=== PATIENT | female | born 1950 | race American Indian/Alaskan Native ===

== ENCOUNTER 2017-02-02 19:40 | Emergency (ER) | payer BC ==
[2017-02-02 19:45] VITALS: BP 120/70; PULSE 90; O2SAT 100
--- NOTE | 2017-02-02 20:09 | C.PDOC ---
History Of Present Illness 66 y/o F c PMHx thyroid disease on Synthroid BIBEMS with no complaint. Patient states that she receives a monthly check from the [employer], but she has not received it for the last 3 months. She accused her son and of stealing the money and at home today, was in an argument about it. The family called 911 due to this aggressive behavior. Police were on site, called for an ambulance to bring the patient to the ED for medical clearance. No family accompanied the patient. The patient denies any homicidal/suicidal ideations or hallucinations. Time Seen by Provider: 02/02/17 19:59 Chief Complaint (Nursing): Psychiatric Evaluation Past Medical History Vital Signs: Last Vital Signs Temp 97.9 F 02/02/17 19:42 Pulse 90 02/02/17 19:42 Resp 16 02/02/17 19:42 BP 120/70 02/02/17 19:42 Pulse Ox 100 02/02/17 20:08 - Medical History PMH: Dementia, Hypothyroidism Family History: States: Unknown Family Hx - Social History Hx Alcohol Use: No Hx Substance Use: No - Immunization History Hx Tetanus Toxoid Vaccination: No Hx Influenza Vaccination: No Hx Pneumococcal Vaccination: No Review Of Systems Except As Marked, All Systems Reviewed And Found Negative. Constitutional: Negative for: Fever Cardiovascular: Negative for: Chest Pain Physical Exam - Physical Exam Appears: No Acute Distress Skin: Normal Color Head: Atraumatic, Normacephalic Eye(s): bilateral: PERRL Oral Mucosa: Moist Neck: Supple Cardiovascular: Rhythm Regular Respiratory: Normal Breath Sounds Gastrointestinal/Abdominal: Soft, No Tenderness Back: No CVA Tenderness Extremity: No Tenderness, No Swelling Pulses: Left Radial: Normal, Right Radial: Normal Neurological/Psych: Oriented x3, Normal Speech, Normal Cognition ED Course And Treatment O2 Sat by Pulse Oximetry: 100 Medical Decision Making Medical Decision Making: The patient is not acutely psychotic and there is no indication for psychiatric evaluation. The patient answers questions reasonably, is alert and oriented x 3. The patient's home will be called to ensure that she is safe to be received at home prior to discharge from the ED. Disposition - Disposition Disposition: HOME/ ROUTINE Disposition Time: 20:51 Condition: STABLE Forms: [employer] (Thai) - Clinical Impression Clinical Impression: Family conflict
[2017-02-02 23:08] VITALS: RESP 18; TEMP 97.8
== END 2017-02-02 21:25 | disposition home or self-care (01) ==
LOC: C.ER 19:40
DX: Z63.9 Problem related to primary support group, unspecified (principal)